=== PATIENT | female | born 1960 | race Two or more races ===

== ENCOUNTER 2024-12-10 09:04 | Emergency (ER) | payer MEDICARE, MEDICAID, SELFPAY ==
[2024-12-10 09:38] VITALS: BP 167/76; PULSE 81; RESP 16; TEMP 36.9; O2SAT 99; BMI 35.9
--- NOTE | 2024-12-10 09:40 | ED.GENADULT ---
HPI - General Adult General Chief complaint: General Medical Stated complaint: Sore throat Time Seen by Provider: 12/10/24 11:11 Related Data Previous Rx's ?Medication ?Instructions ?Recorded fluticasone propionate 50 1 spray intranasal DAILY #16 grams 12/10/24 mcg/actuation nasal spray,suspension (Allergy Relief (fluticasone)) Allergies Allergy/AdvReac Type Severity Reaction Status Date / Time No Known Allergies Allergy Unverified 12/10/24 09:41 [facility] Social History Social History Advance Directives: No Advance Directives Information Provided: Yes Do you have a plan to hurt others: No Plan Physical Exam ED Vital Signs: Vital Signs - 24 hr 12/10/24 09:38 12/10/24 11:48 Temperature 98.5 F 98.5 F Pulse Rate 81 81 Respiratory Rate 16 16 Blood Pressure 167/76 H 167/76 H Pulse Oximetry 99 99 Oxygen Delivery Method Room Air BMI result Body Mass Index 38.1 Course Course Course Narrative: This is a Rapid Medical Examination (RME) performed by Liam Nazario PA-C in triage. Full HPI, ROS, assessment and treatment plan per primary provider in the Main ED. Hx: 64 yo F here for eval of dysphagia x years and epistaxis which began today. reports bleeding from L nare today which resolved w/ clamp. not on AC. reports dysphagia x years, feels food get stuck in her throat however is able to get it down. has not talked to her PCP about this. PE/vitals: posterior oropharynx wnl. no noted bleed from L nare. Plan: labs, viral/ strep swabs Reevaluation(s) Reevaluation #1: This is a duplicate note. Please see Dr. Fierro's completed note regarding patient's visit on 12/10/2024. Medications Administered Discontinued Medications Generic Name Dose Route Start Last Admin Trade Name Freq PRN Reason Stop Dose Admin Silver Nitrate 1 appl 12/10/24 11:15 12/10/24 11:49 Silver Nitrate Applicator Stick..Ea. TOPICAL 12/10/24 11:16 1 appl ONCE ONE Administration Medical Decision Making Lab Data 12/10/24 09:53 12/10/24 09:53 Labs: Lab Results 12/10/24 12/10/24 Range/Units 09:51 09:53 WBC 8.3 (4.8-10.8) X10*3/uL RBC 4.88 (4.20-5.50) X10*6/uL Hgb 13.3 (12.0-16.0) g/dl Hct 42.0 (37.0-47.0) % MCV 86.1 (80.0-98.0) fL MCH 27.3 (27.0-33.0) pg MCHC 31.7 (31.0-35.0) g/dl RDW 13.8 (11.0-16.0) % Plt Count 232 (160-400) X10*3/uL MPV 10.1 (9.4-12.3) fL Immature Gran % (Auto) 0.2 (0.0-0.4) % Neut % (Auto) 61.1 (45-73) % Lymph % (Auto) 30.3 (20-40) % Schleicher % (Auto) 6.3 (2-11) % Eos % (Auto) 1.6 (0-4) % Baso % (Auto) 0.5 (0-2) % Lymph # (Auto) 2.5 (1.2-4.9) X10*3/uL Schleicher # (Auto) 0.5 (0.1-1.2) X10*3/uL Eos # (Auto) 0.1 (0.0-0.4) X10*3/uL Baso # (Auto) 0.0 (0.0-0.2) X10*3/uL Abs Immat Gran (auto) 0.02 (0.00-0.03) X10*3/uL Absolute Neuts (auto) 5.1 (2.0-8.3) x10*3/uL Absolute Nucleated RBC 0.000 (0.0-0.012) X10*3/uL Nucleated RBC % (auto) 0.0 (0.0-0.2) /100WBC Sodium 143 (135-145) mmol/L Potassium 4.5 (3.3-5.1) mmol/L Chloride 107 (96-108) mmol/L Carbon Dioxide 29 (22-29) mmol/L Anion Gap 12 (12-20) BUN 25 H (9-16) mg/dL Creatinine 0.74 (0.5-1.4) mg/dL Estim Creat Clear Calc 62.9 Estimated GFR > 60 Random Glucose 95 (60-115) mg/dL Calcium 9.8 (8.4-10.2) mg/dL Magnesium 2.1 (1.6-2.6) mg/dL Total Bilirubin 0.3 (0.0-1.0) mg/dL AST 21 (5-31) U/L ALT 20 (0-31) U/L Alkaline Phosphatase 92 (39-117) U/L Total Protein 7.8 (6.5-8.0) g/dL Albumin 4.6 (3.5-5.0) g/dL Influenza Type A (PCR) NEGATIVE (Negative) Influenza Type B (PCR) NEGATIVE (Negative) RSV RNA Qual (PCR) NEGATIVE (Negative) SARS-CoV-2 RNA (RT-PCR) NEGATIVE (Negative) S. pyogenes GrpA ROBERT Negative (Negative) Discharge Plan Discharge Clinical Impression: Anterior epistaxis, Allergic rhinitis Patient Disposition: Home, Self-Care Additional Instructions: As discussed blood work, viral swab has been reassuring, physical examination of your mouth did not reveal any abnormalities, your nasal mucosa is very swollen, you have seasonal allergies, the most likely cause for your nasal bleeding is allergic rhinitis, make sure not to blow your nose significantly, do not rub at it, actually recommend application of small amount of Vaseline inside both of the nares every day, and in the next few days start using Flonase to help with swelling and edema of the nose, do not use it for the last couple of days, we will also use the silver nitrate stick to hopefully prevent bleeding from your left Martin, this is a common thing, hold pressure for 10 minutes, usually this resolves, follow up with the PCP any other issues concerns come back to the ER Prescriptions: New fluticasone propionate [Allergy Relief (fluticasone)] 50 mcg/actuation spray,suspension 1 spray intranasal DAILY Qty: 16 0RF Rx Instructions: administer into each nostril Interventions: ED Discharge Assessment Last Done: 12/10/24 11:48 Discharge Date/Time: 12/10/24 11:49 Print Language: Slovenian
[2024-12-10 09:42] VITALS: BMI 38.1
[2024-12-10 09:58] LABS: MANUAL DIFF FLAG NO
[2024-12-10 09:59] LABS: Basophils Percent Auto 0.5 % (0-2); Eosinophils Absolute Auto 0.1 X10*3/uL (0.0-0.4); Eosinophils Percent Auto 1.6 % (0-4); Hemoglobin 13.3 g/dl (12.0-16.0); Imm Gran Abs Auto 0.02 X10*3/uL (0.00-0.03); Imm Gran Pct Auto 0.2 % (0.0-0.4); Lymphocytes Absolute Auto 2.5 X10*3/uL (1.2-4.9); Lymphocytes Percent Auto 30.3 % (20-40); Mean Corpuscular HGB Conc 31.7 g/dl (31.0-35.0); Mean Corpuscular Hemoglobin 27.3 pg (27.0-33.0); Mean Corpuscular Volume 86.1 fL (80.0-98.0); Mean Platelet Volume 10.1 fL (9.4-12.3); Monocytes Absolute Auto 0.5 X10*3/uL (0.1-1.2); Monocytes Percent Auto 6.3 % (2-11); Neutrophils Absolute Auto 5.1 x10*3/uL (2.0-8.3); Neutrophils Percent Auto 61.1 % (45-73); Platelet Count 232 X10*3/uL (160-400); Red Blood Count 4.88 X10*6/uL (4.20-5.50); Red Cell Distribution Width 13.8 % (11.0-16.0); White Blood Count 8.3 X10*3/uL (4.8-10.8)
[2024-12-10 10:06] LABS: IDNOW Serial# 55D5AD1C; Strep A Nucleic Acid Negative (Negative)
[2024-12-10 10:12] LABS: Alanine Aminotransferase 20 U/L (0-31); Albumin Level 4.6 g/dL (3.5-5.0); Alkaline Phosphatase 92 U/L (39-117); Anion Gap 12 (12-20); Aspartate Amino Transferase 21 U/L (5-31); Bilirubin Total 0.3 mg/dL (0.0-1.0); Blood Urea Nitrogen 25 mg/dL (9-16); Calcium 9.8 mg/dL (8.4-10.2); Carbon Dioxide 29 mmol/L (22-29); Chloride 107 mmol/L (96-108); Creatinine Clr Calc Pharmacy 62.9; Estimated Glomerular Filt Rate > 60; Glucose Random 95 mg/dL (60-115); Magnesium 2.1 mg/dL (1.6-2.6); Potassium 4.5 mmol/L (3.3-5.1); Sodium 143 mmol/L (135-145); Total Protein 7.8 g/dL (6.5-8.0)
[2024-12-10 10:37] LABS: Influenza A PCR NEGATIVE (Negative); Influenza B PCR NEGATIVE (Negative); Resp Syncy Virus RNA Qual PCR NEGATIVE (Negative); SARS COV2 PCR INHOUSE NEGATIVE (Negative)
--- OUTSIDE RECORDS SUMMARY | 2024-12-10 10:42 | XMS_ITS | Clinical Summary ---
Author Organization [employer] Address [address] [place] [address] Care Team Providers Care English Tutor Name Role Phone Unavailable Primary Care Provider Unavailabl e Social History Tobacco Use Types Packs/Day Years Used Date Smoking Tobacco: Never Assessed Comments Unknown Sex and Gender Information Value Date Recorded Sex Assigned at Female 04/29/2022 10:16 AM EDT Legal Sex Female 10:16 AM EDT Gender Identity Choose not to disclose 10:16 AM EDT Sexual Orientation Choose not to disclose 2021 10:16 AM EDT Plan of Treatment Health Maintenance Due Date Last Done Comments CT Colonography 1959 Colonoscopy 1959 Colorectal Cancer Screening 1959 Depression Screening 1959 FIT DNA/Cologuard 1959 FIT 1959 FOBT 1959 SDOH Screening 1959 Sigmoidoscopy 1959 Alcohol/Substance Use Screening 1971 Tobacco Screening 1971 Hepatitis C Screening 09/03/1977 Pap Smear 09/03/1980 Cervical Cancer Screening 09/03/1989 HPV/Cotest 09/03/1989 Mammogram 1999 DTaP/Tdap/Td Vaccines (1 - Tdap) 02/23/2002 02/22/2002 Pneumococcal Vaccine: 50+ Years (1 of 1 - PCV) 09/03/2009 Zoster Vaccines (1 of 2) 09/03/2009 COVID-19 Vaccine ( - 2023-2 5 season) 2024 Influenza Vaccine (Season Ended) 2025 RSV Patients and Patients Aged 60 years or older (1 - 1-dose 75+ series) 09/03/2034 Hepatitis B Vaccines Completed 08/25/2002, 03/25/2002, 02/22/2002 HIB Vaccines Aged Out No longer eligi ble based on patient's age to complete this topic HPV Vaccines Aged Out No longer eligi ble based on patient's age to complete this topic Hepatitis A Vaccines Aged Out No long er eligible based on patient's age to complete this topic IPV Vaccines Aged Out No longer eligi ble based on patient's age to complete this topic Meningococcal B Vaccine Aged Out No l onger eligible based on patient's age to complete this topic Meningococcal Vaccine Aged Out No ophelia kathrine eligible based on patient's age to complete this topic RSV under 20 months Aged Out No longe r eligible based on patient's age to complete this topic Rotavirus Vaccines Aged Out No longer eligible based on patient's age to complete this topic Insurance [employer]
--- NOTE | 2024-12-10 11:15 | ED_ITS ---
History of Present Illness General Chief Complaint: General Medical Stated Complaint: Sore throat Time Seen by Provider: 12/10/24 11:11 Source: patient Mode of arrival: ambulatory Limitations: no limitations History of Present Illness ED Provider: [facility] Narrative: 64-year-old woman states that for the past 2 days she has had recurring bleeding from left Martin, she is not on blood thinners, every time bleeding resolves, concerned about bleeding from the left nostril. No fevers or chills, no dyspnea. She reported that she also felt like she had some hard time swallowing for the past few months she is speaking full sentences, no issues swallowing liquids or solids. Related Data Previous Rx's ?Medication ?Instructions ?Recorded fluticasone propionate 50 1 spray intranasal DAILY #16 grams 12/10/24 mcg/actuation nasal spray,suspension (Allergy Relief (fluticasone)) Allergies Allergy/AdvReac Type Severity Reaction Status Date / Time No Known Allergies Allergy Unverified 12/10/24 09:41 Review of Systems 2 Constitutional: Constitutional: Reports as per [facility] Social History Social History Advance Directives: No Advance Directives Information Provided: Yes Do you have a plan to hurt others: No Plan Physical Exam 2 Vital Signs: Vital Signs: Last Vital Signs Temp 98.5 F 12/10/24 09:38 Pulse 81 12/10/24 09:38 Resp 16 12/10/24 09:38 BP 167/76 H 12/10/24 09:38 Pulse Ox 99 12/10/24 09:38 O2 Del Method Room Air 12/10/24 09:38 BMI result Body Mass Index 38.1 Const: Other: * Gen: ?Overall well-appearing patient * HEENT: Boggy nasal mucosa, in the area of potential bleeding site identified left anterior septum * Neck: Supple, no LAD * Resp: ?No wheezing rales rhonchi no stridor moving air well * Skin: Warm, dry, intact, * Neuro: ?Alert and oriented x3, moving upper and lower extremities symmetrically, no obvious facial asymmetry noted Medical Decision Making Medical Decision Making [facility] Narrative: Presenting with overall unremarkable ENT examination, exam consistent with allergic rhinitis likely causing epistaxis, H&H stable, not on blood thinners no other high-risk factors, I am seeing the area that is likely the bleeding site, obtain verbal consent we will apply silver nitrate applicator and discharge, oropharyngeal examination unremarkable, no evidence of thrush, peritonsillar absence of any other infectious etiology, also discussed with the not to blow her nose she keeps going the nose quite a bit of the thing that is likely the cause of her recurrent bleed Differential Diagnosis Differential Diagnoses: The differential diagnosis associated with the presentation includes Lab Data 12/10/24 09:53 12/10/24 09:53 Labs: Lab Results 12/10/24 12/10/24 Range/Units 09:51 09:53 WBC 8.3 (4.8-10.8) X10*3/uL RBC 4.88 (4.20-5.50) X10*6/uL Hgb 13.3 (12.0-16.0) g/dl Hct 42.0 (37.0-47.0) % MCV 86.1 (80.0-98.0) fL MCH 27.3 (27.0-33.0) pg MCHC 31.7 (31.0-35.0) g/dl RDW 13.8 (11.0-16.0) % Plt Count 232 (160-400) X10*3/uL MPV 10.1 (9.4-12.3) fL Immature Gran % (Auto) 0.2 (0.0-0.4) % Neut % (Auto) 61.1 (45-73) % Lymph % (Auto) 30.3 (20-40) % Bureau % (Auto) 6.3 (2-11) % Eos % (Auto) 1.6 (0-4) % Baso % (Auto) 0.5 (0-2) % Lymph # (Auto) 2.5 (1.2-4.9) X10*3/uL Bureau # (Auto) 0.5 (0.1-1.2) X10*3/uL Eos # (Auto) 0.1 (0.0-0.4) X10*3/uL Baso # (Auto) 0.0 (0.0-0.2) X10*3/uL Abs Immat Gran (auto) 0.02 (0.00-0.03) X10*3/uL Absolute Neuts (auto) 5.1 (2.0-8.3) x10*3/uL Absolute Nucleated RBC 0.000 (0.0-0.012) X10*3/uL Nucleated RBC % (auto) 0.0 (0.0-0.2) /100WBC Sodium 143 (135-145) mmol/L Potassium 4.5 (3.3-5.1) mmol/L Chloride 107 (96-108) mmol/L Carbon Dioxide 29 (22-29) mmol/L Anion Gap 12 (12-20) BUN 25 H (9-16) mg/dL Creatinine 0.74 (0.5-1.4) mg/dL Estim Creat Clear Calc 62.9 Estimated GFR > 60 Random Glucose 95 (60-115) mg/dL Calcium 9.8 (8.4-10.2) mg/dL Magnesium 2.1 (1.6-2.6) mg/dL Total Bilirubin 0.3 (0.0-1.0) mg/dL AST 21 (5-31) U/L ALT 20 (0-31) U/L Alkaline Phosphatase 92 (39-117) U/L Total Protein 7.8 (6.5-8.0) g/dL Albumin 4.6 (3.5-5.0) g/dL Influenza Type A (PCR) NEGATIVE (Negative) Influenza Type B (PCR) NEGATIVE (Negative) RSV RNA Qual (PCR) NEGATIVE (Negative) SARS-CoV-2 RNA (RT-PCR) NEGATIVE (Negative) S. pyogenes GrpA ROBERT Negative (Negative) Procedures Epistaxis Control Nostril: Yes left Direct inspection: Yes anterior source identified Direct inspection method: Yes nasal speculum Epistaxis treatment: Yes silver nitrate cautery Results of treatment: Yes treatment well tolerated Complications: Yes none Discharge Plan Discharge Clinical Impression: Anterior epistaxis, Allergic rhinitis Patient Disposition: Home, Self-Care Additional Instructions: As discussed blood work, viral swab has been reassuring, physical examination of your mouth did not reveal any abnormalities, your nasal mucosa is very swollen, you have seasonal allergies, the most likely cause for your nasal bleeding is allergic rhinitis, make sure not to blow your nose significantly, do not rub at it, actually recommend application of small amount of Vaseline inside both of the nares every day, and in the next few days start using Flonase to help with swelling and edema of the nose, do not use it for the last couple of days, we will also use the silver nitrate stick to hopefully prevent bleeding from your left Martin, this is a common thing, hold pressure for 10 minutes, usually this resolves, follow up with the PCP any other issues concerns come back to the ER Prescriptions: New fluticasone propionate [Allergy Relief (fluticasone)] 50 mcg/actuation spray,suspension 1 spray intranasal DAILY Qty: 16 0RF Rx Instructions: administer into each nostril Print Language: [place]ome[place]
[2024-12-10 11:48] VITALS: BP 167/76; PULSE 81; RESP 16; TEMP 36.9; O2SAT 99
[2024-12-10] MEDS: Silver Nitrate Applicator STICK..EA. 1 APPL TOPICAL (11:49)
== END 2024-12-10 11:49 | disposition home or self-care (01) ==
PROVIDERS: Physician Assistant Medical; Emergency Provider Emergency Medicine; PCP Internal Medicine
DX: R04.0 Epistaxis (principal); J30.9 Allergic rhinitis, unspecified; J02.9 Acute pharyngitis, unspecified; Z03.818 Encounter for observation for suspected exposure to other biological agents ruled out
CPT/HCPCS: 0241U; 80053; 83735; 85025; 87651; 99282; 99283